=== PATIENT | male | born 1970 ===

== ENCOUNTER 2021-06-11 09:07 | Day surgery (SDC) | payer OTHER ==
[~2021-06-11] VITALS: Ht 172.7 cm; Wt 81.3 kg
[2021-06-11] MEDS ORDERED: CRESTOR20 MG PO (10:45)
[2021-06-11] MEDS ORDERED: PRILOSEC 20MG20 MG PO (10:46)
[2021-06-11 11:20] VITALS: BP 107/70; PULSE 49; TEMP 97.8
[2021-06-11 11:35] VITALS: BP 116/76; PULSE 53
[2021-06-11 11:50] VITALS: BP 119/81; PULSE 55
--- NOTE | 2021-06-11 12:19 | NUR ---
1120: Patient arrived back into [facility] from procedure room. Report recieved from Jessica LEA. Patient requesting water and saltines. at bedside call light within reach. 1135: Patient vitally stable. Tolerating food and drink well. 1145: MD in to see patient. 1150: Went through discharge instructions with patient and . Questions answered. IV removed without complications. 1200: Patient dressed and ready to go. Escorted to patient entrance via wheelchair. Patient left in the care of his , Nereida.
[2021-06-11 13:11] VITALS: BP 133/81; PULSE 56; TEMP 97.4
== END 2021-06-11 12:00 | disposition home or self-care (01) ==
LOC: SDCO 09:07
DX: K21.9 Gastro-esophageal reflux disease without esophagitis (principal); K22.2 Esophageal obstruction; F17.290 Nicotine dependence, other tobacco product, uncomplicated; Z79.899 Other long term (current) drug therapy; Z80.0 Family history of malignant neoplasm of digestive organs
CPT/HCPCS: C1726; J2704; J7120